=== PATIENT | male | born 1955 | race Caucasian/White ===

== ENCOUNTER 2023-03-06 11:26 | Day surgery (SDC) | payer MEDICARE ==
[~2023-03-06] VITALS: Ht 182.9 cm; Wt 89.1 kg
[2023-03-06 11:56] VITALS: BP 115/78; PULSE 81; TEMP 97.4
[2023-03-06] MEDS ORDERED: VITAMIN C500 MG PO (12:21)
[2023-03-06] MEDS ORDERED: ALEVE 220MG220 MG PO (12:22)
[2023-03-06] MEDS ORDERED: NORCO 325 MG-51 TAB PO (12:53)
[2023-03-06 16:20] VITALS: BP 129/74; PULSE 74; TEMP 97.2
[2023-03-06 16:35] VITALS: BP 127/66; PULSE 75
[2023-03-06 16:50] VITALS: BP 133/75; PULSE 68
[2023-03-06 17:05] VITALS: BP 131/71; PULSE 78
--- NOTE | 2023-03-06 18:18 | NUR ---
[id number]: PT TO RECOVERY BAY 8 FROM PACU S/P R ROBOTIC INGUINAL HERNIA AND OPEN UMBILICAL HERNIA REPAIR 3 TROCAR SITES CLOSED WITH GLUE. PERIUMBILACAL INCISION COVERED WITH GAUZE AND MEPILEX - ALL CDI L&O, PLACED ON MONITOR, VSS ON RA C/O MILD NAUSEA AND GROGGINESS - DECLINES PHARMACEUTICAL INTERVENTION RECEIVED REPORT AND ASSUMED CARE OF PT FROM YULIANA GRAHAM TO BEDSIDE PROVIDED FOOD/FLUIDS, TOLERATING WELL 12L EKG COPIES GIVEN TO PT WITH INSTRUCTION TO F/U WITH PCP - VOICED UNDERSTANDING (? NEW 1ST DEGREE HB IDENTIFIED IN PERIOP - MD, ANESTHESIA, CARDIO ALL AWARE/CLEARED TO GO HOME) PT HAS REMAINED A&O, NAD, VSS ON RA, TOLERATING PO, IS WITHOUT SIGNIFICANT COMPLAINT, WITH STEADY GAIT THRU OUT STAY IV D/C'D. D/C INSTRUCTIONS, ANY FOLLOW UP REVIEWED AND HANDED TO PT. ALL QUESTIONS AND CONCERNS ADDRESSED TO PT SATISFACTION. TAKEN TO EXIT VIA W/C WITH ALL BELONGINGS AND PAPERWORK IN HAND, ASSISTED INTO PASSENGER SEAT OF POV. TO DRIVE HOME.
[2023-03-06 19:22] VITALS: BP 129/74; PULSE 69; TEMP 97.6
--- NOTE | 2023-03-07 09:24 | NUR ---
Following up from yesterday's surgical visit and 1st degree heart block identification. Called pt's PCP, Dr Medina this morning and spoke with nurse with request to pass along to PCP. Additionally, 12L ECG with finding faxed to PCP, per surgeon's request.
== END 2023-03-06 18:23 | disposition home or self-care (01) ==
LOC: SDCO 11:26
DX: K40.30 Unilateral inguinal hernia, with obstruction, without gangrene, not specified as recurrent (principal); K42.0 Umbilical hernia with obstruction, without gangrene
CPT/HCPCS: A4314; C1781; J0690; J1100; J1885; J2405; J2704; J3010; J7120